=== PATIENT | male | born 1970 | race Caucasian/White ===

== ENCOUNTER 2016-06-24 18:49 | Emergency (ER) | payer SELFPAY ==
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
== END 2016-06-24 19:30 | disposition home or self-care (01) ==
LOC: ER 18:49
DX: M79.602 Pain in left arm (principal); Z88.8 Allergy status to other drugs, medicaments and biological substances